=== PATIENT | male | born 1960 | race Caucasian/White ===

== ENCOUNTER 2016-06-25 21:21 | Emergency (ER) | payer MEDICAID, OTHER ==
[~2016-06-25] VITALS: Ht 180.3 cm; Wt 82.0 kg
[~2016-06-25 21:21] MED LIST: ASPI325T PO; CLON-481 PO; LISI20 PO; NITR.4 SL; OMEP20CA5 PO; TEMA15 PO; Z.0.WALKERFRONT
[2016-06-25 21:25] VITALS: BP 119/55; PULSE 86; RESP 18; TEMP 97.3; O2SAT 97
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
[2016-06-25] MEDS ORDERED: CEPH-460 PO (22:20)
[2016-06-25] MEDS ORDERED: CEPHALEXIN MONOHYDRATE 500 MG CAP PO ONE (22:30)
[2016-06-25] MEDS ORDERED: LIDOCAINE 1%/EPINEPHrine 1:100,000 SOLN 50 ML VIAL INFIL ONE (22:30)
[2016-06-25] MEDS ORDERED: TETANUS/DIPHTHERIA TOXOID ADULT 0.5 ML VIAL IM ONE (22:30)
== END 2016-06-25 23:39 | disposition home or self-care (01) ==
LOC: NEPB 21:21
DX: S51.812A Laceration without foreign body of left forearm, initial encounter (principal); S51.811A Laceration without foreign body of right forearm, initial encounter; I10 Essential (primary) hypertension; F17.200 Nicotine dependence, unspecified, uncomplicated; Z23 Encounter for immunization; Z86.79 Personal history of other diseases of the circulatory system; Z87.19 Personal history of other diseases of the digestive system; Z86.19 Personal history of other infectious and parasitic diseases; Z86.59 Personal history of other mental and behavioral disorders; W25.XXXA Contact with sharp glass, initial encounter
CPT/HCPCS: 12004; 12032; 90471; 90714

== ENCOUNTER 2016-07-07 17:25 | Emergency (ER) | payer MEDICAID ==
[~2016-07-07] VITALS: Ht 180.3 cm; Wt 82.0 kg
[~2016-07-07 17:25] MED LIST changes: +CEPH-460 PO
[2016-07-07 17:28] VITALS: BP 190/91; PULSE 96; RESP 16; TEMP 98; O2SAT 94
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
== END 2016-07-07 18:09 | disposition home or self-care (01) ==
LOC: NEPB 17:25
DX: S51.812D Laceration without foreign body of left forearm, subsequent encounter (principal); F17.210 Nicotine dependence, cigarettes, uncomplicated; F31.9 Bipolar disorder, unspecified; F32.9 Major depressive disorder, single episode, unspecified; I25.10 Atherosclerotic heart disease of native coronary artery without angina pectoris; K75.9 Inflammatory liver disease, unspecified; Z48.02 Encounter for removal of sutures; W25.XXXA Contact with sharp glass, initial encounter
CPT/HCPCS: 99281

== ENCOUNTER 2017-02-03 19:19 | Inpatient (IN) | payer MEDICAID, OTHER ==
[2017-02-03] MEDS ORDERED: SODIUM CHLORIDE 0.9% FLUSH 10 ML FLUSH IVF PRN (20:15)
--- NOTE | 2017-02-03 20:26 | PD ---
HPI Chief Complaint: Respiratory Symptoms Time Seen by Provider: 20:08 Travel History International Travel<30 days: No Contact w/Intl Traveler<30days: No History of Present Illness HPI Patient is a 56-year-old male with history of hepatitis C, liver failure, coronary artery disease with 3 cardiac stents, htn, PAD, hx of alcohol abuse presents to ER with complaints of shortness of breath. Patient reports that he has been short of breath for the past 3 days, reports that shortness of breath is exacerbated by laying down. Patient reports that he sits up, he feels much better, reports that he has not been able to sleep for 3 days because of this. Also reports that he has been having intermittent chest pains. Patient reports that he has chest pains only when he lies down, reports a "pain to his chest" relieved when he sits up. Patient describes his chest pain as palpitations. Patient reports that for the past 3 days, he has had a productive cough, he does cough up thick brown mucus. Patient is a smoker. Patient is not sure if he is having any fevers at this time, reports that he is having chills. No abdominal pain, no nausea or vomiting. No other complaints. PFSH Past Medical History Blood Disorders: No Bipolar Disorder: Yes Depression: Yes Cancer: No Cardiac Catheterization: Yes Cardiovascular Problems: Yes (CARDIAC STENTS X 3) High Cholesterol: No Chest Pain: Yes Coronary Artery Disease: Yes Diabetes: No Diminished Hearing: No Endocrine: No Gastrointestinal Disorders: No GERD: Yes Genitourinary: No Hepatitis: Yes (C) Hypertension: Yes Immune Disorder: No Implanted Vascular Access Dvce: Yes Musculoskeletal: No Neurologic: No Psychiatric: Yes Reproductive: No Respiratory: No Immunizations Current: No Myocardial Infarction: Yes (2006) Seizures: No Past Surgical History Abdominal Surgery: Yes AICD: No Appendectomy: Yes Arteriovenous Shunt: No Body Medical Devices: STENTS IN HEART Coronary Stent: Yes (3) Insulin Pump: No Joint Replacement: No Neurologic Surgery: No Pacemaker: No Other Surgery: Yes (APPENDECTOMY, AMPUTATED RIGHT FIFTH TOE) Social History Alcohol Use: No (DENIES) Tobacco Use: Yes (1/2 PACK PER DAY) Substance Use: No Allergies-Medications (Allergen,Severity, Reaction): Coded Allergies: acetaminophen (Unverified Allergy, Intermediate, 02/03/17) propoxyphene (Unverified Allergy, Intermediate, 02/03/17) Reported Meds & Prescriptions Reported Meds & Active Scripts Active Reported Warfarin 5 Mg Tab 5 Mg PO DAILY Flexeril (Cyclobenzaprine HCl) 10 Mg Tab 10 Mg PO TID Metoprolol Tartrate 25 Mg Tab 25 Mg PO BID Review of Systems General / Constitutional: Positive: Chills, No: Fever Eyes: No: Visual changes HENT: No: Headaches Cardiovascular: Positive: Chest Pain or Discomfort, Palpitations Respiratory: Positive: Cough, Shortness of Breath Gastrointestinal: No: Nausea, Vomiting, Diarrhea, Abdominal Pain Genitourinary: No: Urgency, Frequency, Dysuria Musculoskeletal: No: Pain Skin: No Rash Neurologic: No: Weakness Psychiatric: No: Depression Endocrine: No: Polydipsia Hematologic/Lymphatic: No: Easy Bruising Physical Exam Narrative GENERAL: mild distress SKIN: Focused skin assessment warm/dry. HEAD: Atraumatic. Normocephalic. EYES: Pupils equal and round. No scleral icterus. No injection or drainage. ENT: No nasal bleeding or discharge. Mucous membranes pink and moist. NECK: Trachea midline. No JVD. CARDIOVASCULAR: Regular rate and rhythm. No murmur appreciated. RESPIRATORY: No accessory muscle use. Clear to auscultation. Breath sounds equal bilaterally. GASTROINTESTINAL: Abdomen soft, non-tender, nondistended. Hepatic and splenic margins not palpable. MUSCULOSKELETAL: No obvious deformities. No clubbing. No cyanosis. +2 pedal edema bl. NEUROLOGICAL: Awake and alert. No obvious cranial nerve deficits. Motor grossly within normal limits. Normal speech. PSYCHIATRIC: Appropriate mood and affect; insight and judgment normal. Data Data Last Documented VS Vital Signs Date Time Temp Pulse Resp B/P (MAP) Pulse Ox O2 Delivery O2 Flow Rate FiO2 02/03/17 23:06 98 Nasal Cannula 2.00 02/03/17 20:41 20 02/03/17 20:40 98.2 91 148/89 (108) Orders Orders Complete Blood Count With Diff (02/03/17 20:14) Comprehensive Metabolic Panel (02/03/17 20:14) B-Type Natriuretic Peptide (02/03/17 20:14) Act Partial Throm Time (Ptt) (02/03/17 20:14) Prothrombin Time / Inr (Pt) (02/03/17 20:14) Magnesium (Mg) (02/03/17 20:14) Ckmb (Isoenzyme) Profile (02/03/17 20:14) Troponin I (02/03/17 20:14) Urinalysis - C+S If Indicated (02/03/17 20:14) Iv Access Insert/Monitor (02/03/17 20:14) Electrocardiogram (02/03/17 20:14) Ecg Monitoring (02/03/17 20:14) Oximetry (02/03/17 20:14) Chest, Single Ap (02/03/17 20:14) Sodium Chloride 0.9% Flush (Ns Flush) (02/03/17 20:15) Ammonia (02/03/17 20:15) CKMB (02/03/17 20:35) CKMB% (02/03/17 20:35) Blood Culture (02/03/17 22:41) Ceftriaxone Inj (Rocephin Inj) (02/03/17 22:45) Azithromycin Inj (Zithromax Inj) (02/03/17 22:45) Aspirin (Aspirin) (02/03/17 22:45) Potassium, Serum (K) (02/04/17 01:51) Sodium Polysty Sulfate Liq (Kayexalate L (02/03/17 23:00) Furosemide Inj (Lasix Inj) (02/03/17 23:15) Sodium Chloride 0.9% Flush (Ns Flush) (02/03/17 23:00) Sodium Chloride 0.9% Flush (Ns Flush) (02/04/17 09:00) Ceftriaxone Inj (Rocephin Inj) (02/04/17 07:00) Azithromycin (Zithromax) (02/04/17 09:00) Albuterol-Ipratropium Neb (Duoneb Neb) (02/03/17 23:00) Guaifen-Dm 200-20 Mg/10 Ml Liq (Robituss (02/03/17 23:00) Admit To Inpatient (02/03/17 ) Vital Signs (Adult) Q4H (02/03/17 22:58) Activity Oob With Assistance PRN (02/03/17 22:58) Notify Parameters (02/03/17 22:58) Intake + Output Q8H (02/03/17 22:58) ^ Smoking Cessation Counseling (02/03/17 22:58) Diet Heart Healthy (02/04/17 Breakfast) Complete Blood Count With Diff (02/04/17 06:00) Basic Metabolic Panel (Bmp) (02/04/17 06:00) Sputum Culture And Gram Stain (02/03/17 22:58) Legionella Urinary Antigen (02/03/17 22:58) Pneumococcal Urinary Antigen (02/03/17 22:58) Influenzae A/B Antigen (02/03/17 22:58) Resp Oxygen [place] C Titrat 1-4 L (02/03/17 ) Resp Incentive Spirometry (02/03/17 ) Consult Pt Eval & Tx Oob (02/03/17 22:58) Scd Bilateral/Knee High JOSE MARIA.BID (02/03/17 22:58) Inpatient Certification (02/03/17 ) Creatine Kinase (Cpk) (02/04/17 02:30) Creatine Kinase (Cpk) (02/04/17 08:30) Troponin I (02/04/17 02:30) Troponin I (02/04/17 08:30) Aspirin (Aspirin) (02/05/17 09:00) Nitroglycerin Sl (Nitrostat Sl) (02/03/17 23:15) Acetaminophen (Tylenol) (02/03/17 23:15) Ondansetron Inj (Zofran Inj) (02/03/17 23:15) Docusate Sodium (Colace) (02/03/17 23:15) Calcium Carbonate Chew (Tums Chew) (02/03/17 23:15) General Merchandise Manager / Telemetry JOSE MARIA.Q8H (02/03/17 23:08) ^ Other Nursing Orders (02/03/17 23:08) Admit Order (Ed Use Only) (02/03/17 23:11) Labs Laboratory Tests Test 02/03/17 20:35 White Blood Count 11.0 TH/MM3 Red Blood Count 5.02 MIL/MM3 Hemoglobin 13.0 GM/DL Hematocrit 39.5 % Mean Corpuscular Volume 78.7 FL Mean Corpuscular Hemoglobin 25.9 PG Mean Corpuscular Hemoglobin Concent 33.0 % Red Cell Distribution Width 15.6 % Platelet Count 302 TH/MM3 Mean Platelet Volume 8.6 FL Neutrophils (%) (Auto) 65.1 % Lymphocytes (%) (Auto) 19.5 % Monocytes (%) (Auto) 12.9 % Eosinophils (%) (Auto) 1.5 % Basophils (%) (Auto) 1.0 % Neutrophils # (Auto) 7.2 TH/MM3 Lymphocytes # (Auto) 2.1 TH/MM3 Monocytes # (Auto) 1.4 TH/MM3 Eosinophils # (Auto) 0.2 TH/MM3 Basophils # (Auto) 0.1 TH/MM3 CBC Comment DIFF FINAL Differential Comment Prothrombin Time 13.7 SEC Prothromb Time International Ratio 1.2 RATIO Activated Partial Thromboplast Time 26.9 SEC Blood Urea Nitrogen 29 MG/DL Creatinine 2.17 MG/DL Random Glucose 99 MG/DL Total Protein 8.6 GM/DL Albumin 3.1 GM/DL Calcium Level 8.2 MG/DL Magnesium Level 2.0 MG/DL Alkaline Phosphatase 116 U/L Aspartate Amino Transf (AST/SGOT) 168 U/L Alanine Aminotransferase (ALT/SGPT) 146 U/L Total Bilirubin 2.4 MG/DL Sodium Level 132 MEQ/L Potassium Level 5.8 MEQ/L Chloride Level 99 MEQ/L Carbon Dioxide Level 24.8 MEQ/L Anion Gap 8 MEQ/L Estimat Glomerular Filtration Rate 32 ML/MIN Ammonia 63 MCMOL/L Total Creatine Kinase 162 U/L Creatine Kinase MB 2.2 NG/ML Troponin I 0.43 NG/ML B-Type Natriuretic Peptide 1275 PG/ML MDM Medical Decision Making Medical Screen Exam Complete: Yes Emergency Medical Condition: Yes Interpretation(s) EKG at 2020: NSR at 92bpm, qt/qtc: 389/438, no acute st or t wave changes, non acute ekg Differential Diagnosis Differential includes pneumonia, viral syndrome, ACS, arrhythmia, CHF, electrolyte abnormality Narrative Course Patient is a 56-year-old male who presents to emergency room with multiple medical complaints. Reports that for the past 3 days, he has had cough, congestion, possible fever and chills. Reports that he has not been able to lay down or sleep for the past 3 days. VSS in the ER. EKG ordered. patient was placed on a front desk monitor upon arrival to ER. Lab work including xray of chest ordered. Vital Signs Date Time Temp Pulse Resp B/P (MAP) Pulse Ox O2 Delivery O2 Flow Rate FiO2 02/03/17 20:41 20 100 Nasal Cannula 2.00 02/03/17 20:41 20 100 Nasal Cannula 2.00 02/03/17 20:40 98.2 91 18 148/89 (108) 98 Laboratory Tests Test 02/03/17 20:35 White Blood Count 11.0 TH/MM3 (4.0-11.0) Red Blood Count 5.02 MIL/MM3 (4.50-5.90) Hemoglobin 13.0 GM/DL (13.0-17.0) Hematocrit 39.5 % (39.0-51.0) Mean Corpuscular Volume 78.7 FL (80.0-100.0) Mean Corpuscular Hemoglobin 25.9 PG (27.0-34.0) Mean Corpuscular Hemoglobin Concent 33.0 % (32.0-36.0) Red Cell Distribution Width 15.6 % (11.6-17.2) Platelet Count 302 TH/MM3 (150-450) Mean Platelet Volume 8.6 FL (7.0-11.0) Neutrophils (%) (Auto) 65.1 % (16.0-70.0) Lymphocytes (%) (Auto) 19.5 % (9.0-44.0) Monocytes (%) (Auto) 12.9 % (0.0-8.0) Eosinophils (%) (Auto) 1.5 % (0.0-4.0) Basophils (%) (Auto) 1.0 % (0.0-2.0) Neutrophils # (Auto) 7.2 TH/MM3 (1.8-7.7) Lymphocytes # (Auto) 2.1 TH/MM3 (1.0-4.8) Monocytes # (Auto) 1.4 TH/MM3 (0-0.9) Eosinophils # (Auto) 0.2 TH/MM3 (0-0.4) Basophils # (Auto) 0.1 TH/MM3 (0-0.2) CBC Comment DIFF FINAL Differential Comment Prothrombin Time 13.7 SEC (9.8-11.6) Prothromb Time International Ratio 1.2 RATIO Activated Partial Thromboplast Time 26.9 SEC (24.3-30.1) Blood Urea Nitrogen 29 MG/DL (7-18) Creatinine 2.17 MG/DL (0.60-1.30) Random Glucose 99 MG/DL (74-106) Total Protein 8.6 GM/DL (6.4-8.2) Albumin 3.1 GM/DL (3.4-5.0) Calcium Level 8.2 MG/DL (8.5-10.1) Magnesium Level 2.0 MG/DL (1.5-2.5) Alkaline Phosphatase 116 U/L (45-117) Aspartate Amino Transf (AST/SGOT) 168 U/L (15-37) Alanine Aminotransferase (ALT/SGPT) 146 U/L (12-78) Total Bilirubin 2.4 MG/DL (0.2-1.0) Sodium Level 132 MEQ/L (136-145) Potassium Level 5.8 MEQ/L (3.5-5.1) Chloride Level 99 MEQ/L (98-107) Carbon Dioxide Level 24.8 MEQ/L (21.0-32.0) Anion Gap 8 MEQ/L (5-15) Estimat Glomerular Filtration Rate 32 ML/MIN (>89) Ammonia 63 MCMOL/L (11-32) Total Creatine Kinase 162 U/L (39-308) Creatine Kinase MB 2.2 NG/ML (0.5-3.6) Troponin I 0.43 NG/ML (0.02-0.05) B-Type Natriuretic Peptide 1275 PG/ML (0-100) X-ray of the chest shows right lung base airspace consolidation and pleural effusion, patient has been pancultured, will treat with Rocephin as well as azithromycin. Creatinine 2.17 which is elevated, troponin is 0.43, BNP 1275, LFT's are elevated as well, potassium 5.8 I reviewed all labs and studies with patient in detail. Patient will be admitted to the hospital. He does not have chest pain at this time. ASA given as he does have positive troponin Case reviewed with Dr. Bell who accepts pt to service Critical Care Narrative Aggregate critical care time was 30 minutes. Time to perform other separately billable procedures was not included in the critical care time. My time did not include minutes spent treating any other patients simultaneously or on activities that did not directly contribute to the patient's treatment. The services I provided to this patient were to treat and/or prevent clinically significant deterioration that could result in: , decompensation, deterioration I provided critical care services requiring my management, as noted below: Chart data review, documentation time, medication orders and management, vital sign assessments/reviewing monitor data, ordering and reviewing lab tests, ordering and interpreting/reviewing x-rays and diagnostic studies, care of the patient and discussion of the patient with the admitting physicians. Procedures Procedure Narrative Patient was placed in reverse Trendelenburg position, 20 gauge IV was placed to the right external jugular vein without difficultly Diagnosis Primary Impression: NSTEMI (non-ST elevated myocardial infarction) Additional Impressions: Pneumonia Hyperkalemia Renal insufficiency CHF (congestive heart failure) Transaminitis Admitting Information Admitting Physician Requests: Admit Anna Miguel DO Feb 03, 2017 20:26
[2017-02-03] MEDS ORDERED: WARF-23 PO (20:39)
[2017-02-03] MEDS ORDERED: METO25TA3 PO (20:39)
[2017-02-03] MEDS ORDERED: CYCL1TAB29 PO (20:39)
[2017-02-03 20:40] VITALS: BP 148/89; PULSE 91; RESP 18; TEMP 98.2; O2SAT 98
[2017-02-03 20:41] VITALS: RESP 20; O2SAT 100
--- NOTE | 2017-02-03 20:57 | RADRPT ---
EXAM DATE/TIME: 02/03/2017 20:27 [facility] COMPARISON: CHEST SINGLE AP, March 30, 2014, 22:33. INDICATIONS : Short of breath. MEDICAL HISTORY : None. SURGICAL HISTORY : None. ENCOUNTER: Initial ACUITY: 1 day PAIN SCORE: 0/10 LOCATION: Bilateral chest FINDINGS: Right lung base consolidation is present with a small pleural effusion not present previously. The re st of the examination has not significantly changed. CONCLUSION: Right lung base airspace consolidation and pleural effusion and pneumonia should be entertained. Henna Medeiros MD on February 03, 2017 at 20:55 Board Certified Radiologist. This report was verified electronically.
--- NOTE | 2017-02-03 21:35 | EKG ---
Date Performed: 02/03/2017 Time Performed: 20:20:01 PTAGE: 56 years EKG: Sinus rhythm POSSIBLE LEFT ATRIAL ENLARGEMENT BORDERLINE ECG NO PREVIOUS TRACING DOCTOR: Mychal Marrero Interpretating Date/Time 02/03/2017 21:34:03
[2017-02-03 21:51] LABS: AUTOMATED NEUTROPHIL # 7.2 TH/MM3 (1.8-7.7); BASOPHIL # 0.1 TH/MM3 (0-0.2); EOSINOPHIL # 0.2 TH/MM3 (0-0.4); EOSINOPHIL % 1.5 % (0.0-4.0); HEMATOCRIT 39.5 % (39.0-51.0); HEMO FLAGS DIFF FINAL; LYMPH % 19.5 % (9.0-44.0); LYMPHOCYTE # 2.1 TH/MM3 (1.0-4.8); MEAN CELL VOLUME 78.7 FL (80.0-100.0); MEAN CORPUSCULAR HEMOGLOBIN 25.9 PG (27.0-34.0); MONO % 12.9 % (0.0-8.0); NEUT % 65.1 % (16.0-70.0); PLATELET COUNT 302 TH/MM3 (150-450); RED BLOOD COUNT 5.02 MIL/MM3 (4.50-5.90); RED CELL DISTRIBUTION WIDTH 15.6 % (11.6-17.2)
[2017-02-03 22:01] LABS: APTT (PATIENT) 26.9 SEC (24.3-30.1); INTERNATIONAL NORMALIZED RATIO 1.2 RATIO; PROTHROMBIN TIME - PATIENT 13.7 SEC (9.8-11.6)
[2017-02-03 22:18] LABS: ALT (GPT) 146 U/L (12-78); ANION GAP 8 MEQ/L (5-15); AST (GOT) 168 U/L (15-37); BICARBONATE 24.8 MEQ/L (21.0-32.0); BLOOD UREA NITROGEN 29 MG/DL (7-18); CHLORIDE 99 MEQ/L (98-107); GLOMERULAR FILTRATION RATE 32 ML/MIN (>89); SODIUM (NA) 132 MEQ/L (136-145)
[2017-02-03 22:19] LABS: POTASSIUM 5.8 MEQ/L (3.5-5.1)
[2017-02-03 22:24] LABS: ALKALINE PHOSPHATASE 116 U/L (45-117); CREATINE KINASE 162 U/L (39-308); TOTAL BILIRUBIN ADULT 2.4 MG/DL (0.2-1.0)
[2017-02-03 22:37] LABS: CKMB 2.2 NG/ML (0.5-3.6)
[2017-02-03] MEDS ORDERED: AZITHROMYCIN INJ 500 MG in SODIUM CHLOR 0.9% 250 ML INJ 250 ML IV ONE (22:45)
[2017-02-03] MEDS ORDERED: cefTRIAXone INJ 1,000 MG in SODIUM CHLORIDE 0.9% INJ 100 ML IV ONE (22:45)
[2017-02-03] MEDS ORDERED: ASPIRIN 325 MG TAB PO ONE (22:45)
[2017-02-03] MEDS ORDERED: RESP: ALBUTEROL 2.5 MG/IPRATROPIUM 0.5 MG NEB (PRN) INH (23:00)
[2017-02-03] MEDS ORDERED: guaiFENesin/DEXTROMETHORPHAN 200 MG/20 MG/10 ML CUP PO PRN (23:00)
[2017-02-03] MEDS ORDERED: SODIUM POLYSTYRENE SULFONATE SUSP 15 GM/60 ML CUP PO ONE (23:00)
[2017-02-03] MEDS ORDERED: SODIUM CHLORIDE 0.9% FLUSH 10 ML FLUSH IV FLUSH PRN (23:00)
[2017-02-03 23:06] VITALS: O2SAT 98
[2017-02-03] MEDS ORDERED: ONDANSETRON HCL 4 MG/2 ML VIAL IV PRN (23:15)
[2017-02-03] MEDS ORDERED: CALCIUM CARBONATE 500 MG CHEWABLE TAB CHEW PRN (23:15)
[2017-02-03] MEDS ORDERED: DOCUSATE SODIUM 100 MG CAP PO PRN (23:15)
[2017-02-03] MEDS ORDERED: FUROSEMIDE 100 MG/10 ML VIAL IV PUSH ONE (23:15)
[2017-02-03] MEDS ORDERED: ACETAMINOPHEN 325 MG TAB PO PRN (23:15)
[2017-02-03 23:22] VITALS: BP 140/90; PULSE 93; RESP 18; O2SAT 98
--- NOTE | 2017-02-03 23:49 | HHI.HP ---
HPI Service [facility] Primary Care Physician Unknown Admission Diagnosis NSTEMI, pneumonia, CHF exacerbation, hyperkalemia Diagnoses: Chief Complaint: shortness of breath Travel History International Travel<30 Days: No Contact w/Intl Traveler <30 Da: No Traveled to Known Affected Are: No History of Present Illness Written by ALONSO Sow acting as scribe for [Shelbio] on 02/03/17 at 23 :40. 56 y/o male with a history of HTN, liver failure, Hep C, CAD with stent placement, and PAD presents to the ED with complaints of shortness of breath. He states for the past 3 days he has had increasing shortness of breath worse with laying down and intermittent pressure like retrosternal pain when laying down that lasts a few minutes. He also complains of bilateral lower extremity swelling, weight gain, productive cough with brown sputum, he states he feels warm but did not check his temperature, with associated nausea and vomiting. He has chronic back pain that radiates to his abdomen. He is a poor historian when it comes to medical history, he states he was told he has liver failure but does not know why and he is unsure if he really has hep C. Per the he is being worked up for vagal nerve irritation that may be contributing to his stomach and back pain. Recently had imaging studies including evaluation of the gallbladder at [facility] results not known to the patient and . 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 digit amputation Reported Medications Reported Meds & Active Scripts Active Reported Warfarin 5 Mg Tab 5 Mg PO DAILY Flexeril (Cyclobenzaprine HCl) 10 Mg Tab 10 Mg PO TID Metoprolol Tartrate 25 Mg Tab 25 Mg PO BID Allergies: Coded Allergies: acetaminophen (Unverified Allergy, Intermediate, 02/03/17) propoxyphene (Unverified Allergy, Intermediate, 02/03/17) Active Ordered Medications Current Medications Medications (Trade) Dose Ordered Sig/Cory Route Start Time Stop Time Status Last Admin (NS Flush) 2 ml UNSCH PRN IVF 02/03/17 20:15 Azithromycin 500 mg/Sodium Chloride 250 ml @ 250 mls/hr ONCE ONCE IV 02/03/17 22:45 02/03/17 23:44 (NS Flush) 2 ml UNSCH PRN IV FLUSH 02/03/17 23:00 (NS Flush) 2 ml BID IV FLUSH 02/04/17 09:00 Ceftriaxone Sodium 1000 mg/ Sodium Chloride 100 ml @ 200 mls/hr Q24H IV 02/04/17 07:00 (Zithromax) 500 mg DAILY PO 02/04/17 09:00 (Duoneb Neb) 1 ampule Q4HR NEB PRN INH 02/03/17 23:00 (Robitussin Dm 200-20 Mg/10 ml Liq) 10 ml Q4H PRN PO 02/03/17 23:00 (Aspirin) 325 mg DAILY PO 02/05/17 09:00 (Nitrostat Sl) 0.4 mg Q5M PRN SL 02/03/17 23:15 (Tylenol) 650 mg Q4H PRN PO 02/03/17 23:15 UNV (Zofran Inj) 4 mg Q6H PRN IV 02/03/17 23:15 (Colace) 100 mg BID PRN PO 02/03/17 23:15 (Tums Chew) 1,000 mg TID PRN CHEW 02/03/17 23:15 Family History Family history significant for diabetes Social History Tobacco use: 8 cigarettes every 2 days Alcohol use: Denies Illicit drug use: Denies Physical Exam Vital Signs Vital Signs Date Time Temp Pulse Resp B/P (MAP) Pulse Ox O2 Delivery O2 Flow Rate FiO2 02/03/17 23:22 93 18 140/90 (107) 98 Room Air 02/03/17 23:06 98 Nasal Cannula 2.00 02/03/17 20:41 20 100 Nasal Cannula 2.00 02/03/17 20:41 20 100 Nasal Cannula 2.00 02/03/17 20:40 98.2 91 18 148/89 (108) 98 Physical Exam GENERAL: This is a well-nourished, well-developed patient, who appears in distress due to shortness of breath and pain. SKIN: No rashes, ecchymoses or lesions. Cool and dry. HEAD: Atraumatic. Normocephalic. No temporal or scalp tenderness. EYES: Pupils equal round and reactive. ENT: Nose without bleeding, purulent drainage or septal hematoma. Airway patent. NECK: Trachea midline. Questionable JVD, IV in place. Supple, nontender, no meningeal signs. CARDIOVASCULAR: Regular rate and rhythm without murmurs, gallops, or rubs. RESPIRATORY: Right lung diminished with crackles. No wheezes, rales, or rhonchi. GASTROINTESTINAL: Abdomen soft, non-tender, nondistended. . No guarding. MUSCULOSKELETAL: Petros pedal edema. No calf tenderness. Negative Homans sign bilaterally. NEUROLOGICAL: Awake and alert. Motor and sensory grossly within normal limits. Normal speech. Laboratory Laboratory Tests Test 02/03/17 20:35 White Blood Count 11.0 Red Blood Count 5.02 Hemoglobin 13.0 Hematocrit 39.5 Mean Corpuscular Volume 78.7 Mean Corpuscular Hemoglobin 25.9 Mean Corpuscular Hemoglobin Concent 33.0 Red Cell Distribution Width 15.6 Platelet Count 302 Mean Platelet Volume 8.6 Neutrophils (%) (Auto) 65.1 Lymphocytes (%) (Auto) 19.5 Monocytes (%) (Auto) 12.9 Eosinophils (%) (Auto) 1.5 Basophils (%) (Auto) 1.0 Neutrophils # (Auto) 7.2 Lymphocytes # (Auto) 2.1 Monocytes # (Auto) 1.4 Eosinophils # (Auto) 0.2 Basophils # (Auto) 0.1 CBC Comment DIFF FINAL Differential Comment Prothrombin Time 13.7 Prothromb Time International Ratio 1.2 Activated Partial Thromboplast Time 26.9 Blood Urea Nitrogen 29 Creatinine 2.17 Random Glucose 99 Total Protein 8.6 Albumin 3.1 Calcium Level 8.2 Magnesium Level 2.0 Alkaline Phosphatase 116 Aspartate Amino Transf (AST/SGOT) 168 Alanine Aminotransferase (ALT/SGPT) 146 Total Bilirubin 2.4 Sodium Level 132 Potassium Level 5.8 Chloride Level 99 Carbon Dioxide Level 24.8 Anion Gap 8 Estimat Glomerular Filtration Rate 32 Ammonia 63 Total Creatine Kinase 162 Creatine Kinase MB 2.2 Troponin I 0.43 B-Type Natriuretic Peptide 1275 Result Diagram: 02/03/17203402/03/172034 Imaging EKG tracing interpreted by me with sinus rhythm Chest x-ray image interpreted by me shows mild right lung base atelectasis and or infiltrate. Caprini VTE Risk Assessment Caprini VTE Risk Assessment: Mod/High Risk (score >= 2) VTE Pharm Contraindication: possible cath tomorrow Caprini Risk Assessment Model Point Value = 1 Point Value = 2 Point Value = 3 Point Value = 5 Age 41-60 Minor surgery BMI > 25 kg/m2 Swollen legs Varicose veins or History of unexplained or recurrent spontaneous Oral contraceptives or hormone replacement Sepsis (< 1 month) Serious lung disease, including pneumonia (< 1 month) Abnormal pulmonary function Acute myocardial infarction Congestive heart failure (< 1 month) History of inflammatory bowel disease Medical patient at bed rest Age 61-74 Arthroscopic surgery Major open surgery (> 45 min) Laparoscopic surgery (> 45 min) Malignancy Confined to bed (> 72 hours) Immobilizing plaster cast Central venous access Age >= 75 History of VTE Family history of VTE Factor V Leiden Prothrombin [id number] Lupus anticoagulant Anticardiolipin antibodies Elevated serum homocysteine Heparin-induced thrombocytopenia Other congenital or acquired thrombophilia Stroke (< 1 month) Elective arthroplasty Hip, pelvis, or leg fracture Acute spinal cord injury (< 1 month) Prophylaxis Regimen Total Risk Factor Score Risk Level Prophylaxis Regimen 0-1 Low Early ambulation 2 Moderate Order ONE of the following: *Sequential Compression Device (SCD) *Heparin 5000 units SQ BID 3-4 Higher Order ONE of the following medications: *Heparin 5000 units SQ TID *Enoxaparin/Lovenox 40 mg SQ daily (WT < 150 kg, CrCl > 30 mL/min) *Enoxaparin/Lovenox 30 mg SQ daily (WT < 150 kg, CrCl > 10-29 mL/min) *Enoxaparin/Lovenox 30 mg SQ BID (WT < 150 kg, CrCl > 30 mL/min) AND/OR *Sequential Compression Device (SCD) 5 or more Highest Order ONE of the following medications: *Heparin 5000 units SQ TID (Preferred with Epidurals) *Enoxaparin/Lovenox 40 mg SQ daily (WT < 150 kg, CrCl > 30 mL/min) *Enoxaparin/Lovenox 30 mg SQ daily (WT < 150 kg, CrCl > 10-29 mL/min) *Enoxaparin/Lovenox 30 mg SQ BID (WT < 150 kg, CrCl > 30 mL/min) AND *Sequential Compression Device (SCD) Assessment and Plan Problem List: (1) Acute kidney injury ICD Code: N17.9 - Acute kidney failure, unspecified Status: Acute (2) NSTEMI (non-ST elevated myocardial infarction) ICD Code: I21.4 - Non-ST elevation (NSTEMI) myocardial infarction Status: Acute (3) Transaminitis ICD Code: R74.0 - Nonspecific elevation of levels of transaminase and lactic acid dehydrogenase [LDH] Status: Acute (4) Hepatitis C ICD Code: B19.20 - Hepatitis C Status: Chronic (5) CHF (congestive heart failure) ICD Code: I50.9 - Heart failure, unspecified Status: Acute Assessment and Plan 56 y/o male with a history of HTN, liver failure, Hep C, CAD with stent placement, and PAD presents to the ED with complaints of shortness of breath. CHF exacerbation, new onset, patient denies any history of heart failure BNP 1275 -Lasix 80mg IV given in ED. Pulse doses of lasix in light of LORENZO -2D echo ordered -Consult cardiology Community acquired pneumonia Chest x ray reviewed and shows mild right lung base atelectasis and /or infiltrate -IV antibiotics: Rocephin and azithromycin -Robitussin for cough -DuoNeb scheduled -Screen for influenza, obtain sputum culture, Legionella and pneumococcal urinary antigen and follow-up blood culture Transaminitis, AST 168, ALT 148, likely due to chronic liver failure and Hep C, ammonia 63 as well as passive congestion from heart failure and infection -Cont to trend LFTs -Rifaximin started PO BID Acute Kidney Injury, creatine 2.1, baseline .5 in 2013 . This is multifactorial. Obtain urinalysis -Consult nephrology -BMP in AM -Hold fluids for now due to CHF Hyperkalemia, suspected due to LORENZO -Kayexalate x 1 given -BMP in am NSTEMI, troponin .43, patient with intermittent chest pain pressure, worse with laying down EKG shows SR with no ST elevation -Await cardiology input -ASA daily -Nitro SL PRN -Serial troponin and EKGs -Metoprolol BID Abdominal pain, non specific, suspected due to liver failure, patient is unsure why he has liver failure or if he has hep c. -Lipase ordered -Pain management with IV morphine and Po Roxicodone -Obtain recent imaging studies performed at [facility] DVT prophylaxis: SCDs, hold chemical prophylaxis for possible cardiac cath. Patient on Coumadin for reasons not known to the patient and . Denies history of A. fib, CVA, DVT and PE. Code Status Full Discussed Condition With Patient and patient's This note was transcribed by ALONSO De Santiago. I, Dr. Maciej Bell personally performed the history, physical exam, and medical decision making; and confirmed the accuracy of the information in the transcribed note. Authenticated by Dr. Maciej Bell on 02/04/17 at 01:13. Physician Certification 2 Midnight Certification Type: Admission for Inpatient Services Order for Inpatient Services The services are ordered in accordance with Medicare regulations or non- Medicare payer requirements, as applicable. In the case of services not specified as inpatient-only, they are appropriately provided as inpatient services in accordance with the 2-midnight benchmark. Estimated LOS (days): 2 days is the estimated time the patient will need to remain in the hospital, assuming treatment plan goals are met and no additional complications. Post-Hospital Plan: Home Flakita Almonte Feb 03, 2017 23:49 Maciej Bell MD Feb 04, 2017 01:06
[2017-02-04] VITALS (11 sets, daily range): BP systolic 139–159; BP diastolic 71–93; PULSE 86–101; RESP 18–20; TEMP 97.7–97.9; O2SAT 92–99
[2017-02-04] MEDS ORDERED: NALOXONE HCL 0.4 MG/ML AMP IV PRN
[2017-02-04] MEDS ORDERED: LORazepam 2 MG/ML VIAL IV PUSH ONE
[2017-02-04 02:09] LABS: POTASSIUM 3.6 MEQ/L (3.5-5.1)
[2017-02-04] MEDS ORDERED: MORPHINE SULFATE 4 MG/ML INJ IV PUSH ONE (02:15)
[2017-02-04 04:32] LABS: AUTOMATED NEUTROPHIL # 9.2 TH/MM3 (1.8-7.7); BASOPHIL # 0.1 TH/MM3 (0-0.2); BASOPHIL % 0.7 % (0.0-2.0); EOSINOPHIL # 0.1 TH/MM3 (0-0.4); EOSINOPHIL % 0.8 % (0.0-4.0); HEMATOCRIT 36.8 % (39.0-51.0); HEMO FLAGS DIFF FINAL; LYMPH % 9.4 % (9.0-44.0); LYMPHOCYTE # 1.1 TH/MM3 (1.0-4.8); MEAN CELL VOLUME 77.5 FL (80.0-100.0); MEAN CORPUSCULAR HEMOGLOBIN 26.1 PG (27.0-34.0); MEAN CORPUSCULAR HGB CONC 33.6 % (32.0-36.0); MONO % 8.3 % (0.0-8.0); NEUT % 80.8 % (16.0-70.0); PLATELET COUNT 288 TH/MM3 (150-450); RED BLOOD COUNT 4.75 MIL/MM3 (4.50-5.90); RED CELL DISTRIBUTION WIDTH 15.5 % (11.6-17.2); WHITE BLOOD COUNT 11.4 TH/MM3 (4.0-11.0)
[2017-02-04 05:21] LABS: BICARBONATE 25.9 MEQ/L (21.0-32.0); POTASSIUM 3.6 MEQ/L (3.5-5.1)
[2017-02-04] MEDS: MORPHINE SULFATE 4 MG/ML INJ IV PRN ×2 (06:45→21:56)
[2017-02-04] MEDS: cefTRIAXone INJ 1,000 MG in SODIUM CHLORIDE 0.9% INJ 100 ML IV SCH (06:45)
[2017-02-04] MEDS: AZITHROMYCIN 250 MG TAB PO SCH (09:11)
[2017-02-04] MEDS: METOPROLOL TARTRATE 25 MG TAB PO SCH ×2 (09:11→21:56)
--- NOTE | 2017-02-04 09:25 | PD.CONS ---
HPI Consult Requested By Primary Care Physician Unknown History of Present Illness 56 y/o male poor historian with pmhx significant for HTN, liver failure, Hep C, CAD with stent placement, and PAD admitted with complaints of shortness of breath. Per chart for the past 3 days he has had increasing shortness of breath worse with laying down and intermittent chest pain when laying down that lasts a few minutes. He also complains of bilateral lower extremity swelling. Cardiology consulted for elevated troponin and BNP. Review of Systems ROS Limitations: Poor Historian Consitutional: DENIES: Fatigue, Fever, Chills, Weight gain, Weight loss Eyes: DENIES: Amaurosis Fugax, Change in vision HEENT: DENIES: Lightheadedness, Change in hearing Respiratory: DENIES: See HPI, Cough, Snoring, Shortness of breath, Wheezing, Sputum production Cardiovascular: DENIES: See HPI, Chest pain, Palpitations, Syncope, Tachycardia Gastrointestinal: DENIES: Nausea, Vomiting, Change in bowel habits, Reflux, Bloody stools, Melena Genitourinary: DENIES: Urinary incontinence, Difficulty voiding Integumentary: DENIES: Rash Neurologic: DENIES: Tingling or numbness, Memory problems, Poor Balance, Stroke symptoms Musculoskeletal: DENIES: Joint pain, Muscle pain, Limited range of motion, Back pain Psychiatric: DENIES: Anxiety, Depression, Sleep disturbances Hematologic: DENIES: Bruising tendencies, Bleeding tendencies Endocrine: DENIES: Weight gain, Weight loss, Thyroid disease Past Family Social History Allergies: Coded Allergies: acetaminophen (Unverified Allergy, Intermediate, 02/03/17) propoxyphene (Unverified Allergy, Intermediate, 02/03/17) Past Medical History HTN, liver failure, Hep C, CAD with stent placement, and PAD Past Surgical History Appendectomy Left foot 5th digit amputation Reported Medications Reported Meds & Active Scripts Active Reported Warfarin 5 Mg Tab 5 Mg PO DAILY Flexeril (Cyclobenzaprine HCl) 10 Mg Tab 10 Mg PO TID Metoprolol Tartrate 25 Mg Tab 25 Mg PO BID Active Ordered Medications Current Medications Medications (Trade) Dose Ordered Sig/Cory Route Start Time Stop Time Status Last Admin (NS Flush) 2 ml UNSCH PRN IVF 02/03/17 20:15 (NS Flush) 2 ml UNSCH PRN IV FLUSH 02/03/17 23:00 (NS Flush) 2 ml BID IV FLUSH 02/04/17 09:00 Ceftriaxone Sodium 1000 mg/ Sodium Chloride 100 ml @ 200 mls/hr Q24H IV 02/04/17 07:00 02/04/17 06:45 (Zithromax) 500 mg DAILY PO 02/04/17 09:00 02/04/17 09:11 (Duoneb Neb) 1 ampule Q4HR NEB PRN INH 02/03/17 23:00 (Robitussin Dm 200-20 Mg/10 ml Liq) 10 ml Q4H PRN PO 02/03/17 23:00 (Aspirin) 325 mg DAILY PO 02/05/17 09:00 (Nitrostat Sl) 0.4 mg Q5M PRN SL 02/03/17 23:15 (Zofran Inj) 4 mg Q6H PRN IV 02/03/17 23:15 (Colace) 100 mg BID PRN PO 02/03/17 23:15 (Tums Chew) 1,000 mg TID PRN CHEW 02/03/17 23:15 (Xifaxan) 550 mg BID PO 02/04/17 09:00 (Roxicodone) 10 mg Q4H PRN PO 02/04/17 00:00 (Morphine Inj) 1 mg Q3H PRN IV 02/04/17 00:00 02/04/17 06:45 (Roxicodone) 5 mg Q4H PRN PO 02/04/17 00:00 (Narcan Inj) 0.4 mg UNSCH PRN IV 02/04/17 00:00 (Lopressor) 25 mg BID PO 02/04/17 09:00 02/04/17 09:11 Physical Exam Vital Signs Vital Signs Date Time Temp Pulse Resp B/P (MAP) Pulse Ox O2 Delivery O2 Flow Rate FiO2 02/04/17 08:19 99 21 02/04/17 08:00 97.9 92 20 140/77 (98) 92 02/04/17 08:00 90 02/04/17 06:45 97.7 99 150/71 (97) 99 02/04/17 06:04 02/04/17 05:32 86 18 148/86 (106) 98 Nasal Cannula 2.00 02/03/17 23:22 93 18 140/90 (107) 98 Room Air 02/03/17 23:06 98 Nasal Cannula 2.00 02/03/17 20:41 20 100 Nasal Cannula 2.00 02/03/17 20:41 20 100 Nasal Cannula 2.00 02/03/17 20:40 98.2 91 18 148/89 (108) 98 Physical Exam GENERAL: Well-nourished, well-developed patient. SKIN: Warm and dry. HEAD: Normocephalic. EYES: No scleral icterus. No injection or drainage. NECK: Supple, trachea midline. No JVD or lymphadenopathy. CARDIOVASCULAR: Regular rate and rhythm without murmurs, gallops, or rubs. RESPIRATORY: Breath sounds equal bilaterally. No accessory muscle use. GASTROINTESTINAL: Abdomen soft, non-tender, nondistended. EXTREMITIES: No cyanosis, or +edema. NEUROLOGICAL: Awake, alert, and oriented x 3. Non-focal. Laboratory Laboratory Tests Test 02/03/17 20:35 02/04/17 01:33 02/04/17 04:20 White Blood Count 11.0 11.4 Red Blood Count 5.02 4.75 Hemoglobin 13.0 12.4 Hematocrit 39.5 36.8 Mean Corpuscular Volume 78.7 77.5 Mean Corpuscular Hemoglobin 25.9 26.1 Mean Corpuscular Hemoglobin Concent 33.0 33.6 Red Cell Distribution Width 15.6 15.5 Platelet Count 302 288 Mean Platelet Volume 8.6 7.9 Neutrophils (%) (Auto) 65.1 80.8 Lymphocytes (%) (Auto) 19.5 9.4 Monocytes (%) (Auto) 12.9 8.3 Eosinophils (%) (Auto) 1.5 0.8 Basophils (%) (Auto) 1.0 0.7 Neutrophils # (Auto) 7.2 9.2 Lymphocytes # (Auto) 2.1 1.1 Monocytes # (Auto) 1.4 0.9 Eosinophils # (Auto) 0.2 0.1 Basophils # (Auto) 0.1 0.1 CBC Comment DIFF FINAL DIFF FINAL Differential Comment Prothrombin Time 13.7 Prothromb Time International Ratio 1.2 Activated Partial Thromboplast Time 26.9 Blood Urea Nitrogen 29 28 Creatinine 2.17 1.73 Random Glucose 99 90 Total Protein 8.6 Albumin 3.1 Calcium Level 8.2 8.3 Magnesium Level 2.0 Alkaline Phosphatase 116 Aspartate Amino Transf (AST/SGOT) 168 Alanine Aminotransferase (ALT/SGPT) 146 Total Bilirubin 2.4 Sodium Level 132 137 Potassium Level 5.8 3.6 3.6 Chloride Level 99 101 Carbon Dioxide Level 24.8 25.9 Anion Gap 8 10 Estimat Glomerular Filtration Rate 32 41 Ammonia 63 Total Creatine Kinase 162 61 65 Creatine Kinase MB 2.2 Troponin I 0.43 0.41 0.40 B-Type Natriuretic Peptide 1275 Lipase 82 Date/Time Source Procedure Growth Status 02/03/17 23:45 Blood Peripheral Aerobic Blood Culture Pending Received 02/03/17 23:45 Blood Peripheral Anaerobic Blood Culture Pending Received Result Diagram: 02/04/1741902/04/17419 Assessment and Plan Problem List: (1) CHF (congestive heart failure) ICD Codes: I50.9 - Heart failure, unspecified Status: Acute Plan: 56 y/o M with SOB, PNA and acute renal failure. Symptoms concerning for new onset CHF. He remains afebrile and hemodynamically stable, chest pain free with mild bilateral leg edema and tenderness on palpation in the right upper quadrant. Echo ordered pending results. Mildly elevated troponin likely secondary to LORENZO. EKG unremarkable. No invasive cardiac workup at this time due to LORENZO. Recommendations: 1. Medical management 2. Await echo results (2) Chest pain ICD Codes: R07.9 - Chest pain Status: Acute (3) Hypertension ICD Codes: I10 - Hypertension Status: Acute (4) Tobacco abuse ICD Codes: Z72.0 - Tobacco abuse Status: Acute (5) Alcohol abuse ICD Codes: F10.10 - Alcohol abuse Status: Acute (6) Peripheral arterial disease ICD Codes: I73.9 - Peripheral arterial disease Status: Acute (7) Hepatitis C ICD Codes: B19.20 - Hepatitis C Status: Chronic (8) Acute kidney injury ICD Codes: N17.9 - Acute kidney failure, unspecified Status: Acute Problem Qualifiers (1) CHF (congestive heart failure): Chava Blas MD Feb 04, 2017 09:25
--- NOTE | 2017-02-04 11:20 | HHI.PR ---
Subjective Remarks Pt doesn't speak much, complains of pain 6-01/24 initially tells me mid chest then when RN goes in tells her right sided chest. Pt is a poor historian, falls asleep. social service technician just finished performing the ECHO. Objective Vitals Vital Signs Date Time Temp Pulse Resp B/P (MAP) Pulse Ox O2 Delivery O2 Flow Rate FiO2 02/04/17 08:19 99 21 02/04/17 08:00 97.9 92 20 140/77 (98) 92 02/04/17 08:00 90 02/04/17 06:45 97.7 99 150/71 (97) 99 02/04/17 06:04 02/04/17 05:32 86 18 148/86 (106) 98 Nasal Cannula 2.00 02/03/17 23:22 93 18 140/90 (107) 98 Room Air 02/03/17 23:06 98 Nasal Cannula 2.00 02/03/17 20:41 20 100 Nasal Cannula 2.00 02/03/17 20:41 20 100 Nasal Cannula 2.00 02/03/17 20:40 98.2 91 18 148/89 (108) 98 I/O 02/03/17 02/03/17 02/03/17 02/04/17 02/04/17 02/04/17 07:00 15:00 23:00 07:00 15:00 23:00 Output Total 1800 ml Balance -1800 ml Output Urine Total 1800 ml # Voids 3 Result Diagram: 02/04/1741902/04/17419 Objective Remarks GENERAL: appears very uncomfortable. somnolent SKIN: multiple tattoos HEAD: Atraumatic. Normocephalic. EYES: keeps eyes closed ENT: Nose without drainage. Airway patent. NECK: Trachea midline. CARDIOVASCULAR: Regular rate and rhythm without obvious murmurs RESPIRATORY: Right lung diminished with crackles. No wheezes GASTROINTESTINAL: Abdomen soft, non-tender, nondistended. . No guarding. MUSCULOSKELETAL: trace to 1+ edema noted edema in LE. No calf tenderness. Negative Homans sign bilaterally. NEUROLOGICAL: Awake and alert. Motor and sensory grossly within normal limits. Normal speech. A/P Problem List: (1) Acute kidney injury ICD Code: N17.9 - Acute kidney failure, unspecified Status: Acute (2) NSTEMI (non-ST elevated myocardial infarction) ICD Code: I21.4 - Non-ST elevation (NSTEMI) myocardial infarction Status: Acute (3) Transaminitis ICD Code: R74.0 - Nonspecific elevation of levels of transaminase and lactic acid dehydrogenase [LDH] Status: Acute (4) Hepatitis C ICD Code: B19.20 - Hepatitis C Status: Chronic (5) CHF (congestive heart failure) ICD Code: I50.9 - Heart failure, unspecified Status: Acute Assessment and Plan 56 y/o male with a history of HTN, liver failure, Hep C, CAD with stent placement, and PAD presents to the ED with complaints of shortness of breath. CHF exacerbation, new onset, patient denies any history of heart failure BNP 1275 -s/p Lasix 80mg IV given in ED. start lasix 40mg IV daily. monitor kidney function closely. -2D echo done, report pending. -Cardiology following, discussed w Dr. Rubio, no heparin gtt for now. continue aggressive medical management. No plans for cardiac cath due to LORENZO. - heart healthy diet w fluid restriction <1500ml/day Community acquired pneumonia Chest x ray reviewed and shows mild right lung base atelectasis and /or infiltrate -IV antibiotics: Rocephin and azithromycin -Robitussin for cough -DuoNeb scheduled -Screen for influenza, obtain sputum culture, Legionella and pneumococcal urinary antigen not yet available and follow-up blood culture Transaminitis, AST 168, ALT 148, likely due to chronic liver failure and Hep C, ammonia 63 as well as congestion from heart failure and infection -Cont to trend LFTs -on Rifaximin PO BID Acute Kidney Injury, creatine 2.1-->1.75, baseline .5 in 2014 . This is multifactorial. Obtain urinalysis -Consult nephrology in place. -monitor Cr levels -Hold fluids for now due to CHF Hyperkalemia, suspected due to LORENZO -s/p Kayexalate x 1 -resolved NSTEMI, troponin .43--.41--.40, patient with intermittent chest pain pressure, worse with laying down EKG shows SR with no ST elevation -aggressive medical management for now. Cards following. Appreciate input. -ASA daily -Nitro SL PRN -Metoprolol BID Abdominal pain, non specific, suspected due to liver failure, patient is unsure why he has liver failure or if he has hep c. -Lipase ordered -Pain management with IV morphine and Po Roxicodone -Obtain recent imaging studies performed at [facility] DVT prophylaxis: SCDs, hold chemical prophylaxis for possible cardiac cath. Pt' s brought in pt's meds and there was no coumadin bottle in there. No known reason why pt would be on coumadin. RN to update MED REC. no prior history of A. fib, CVA, DVT and PE per patient and . Discharge Planning d/c pending further recs and clinical improvement. Problem Qualifiers (1) CHF (congestive heart failure): Marisol Felton MD Feb 04, 2017 11:20
[2017-02-04] MEDS: RIFAXIMIN 550 MG TAB PO SCH ×2 (12:41→21:55)
[2017-02-04] MEDS: SODIUM CHLORIDE 0.9% FLUSH 10 ML FLUSH IV FLUSH SCH ×2 (12:42→21:56)
--- NOTE | 2017-02-04 15:42 | ECHRPT ---
Indication: HEART FAILURE CONCLUSIONS The left ventricular systolic function is sobcgxyy-jc-djvcexa reduced with an estimated ejection fra ction in the range of 35-40%. Normal left ventricular size. Wall thickness is normal. The left atrial size is mildly dilated. The right atrial size is flio-de-vzkbvybxcx dilated. Moderate thickening of the mitral valve leaflets. Mild mitral valve regurgitation. There is moderate tricuspid regurgitation. The estimated pulmonary arterial pressure is 54 mmHg. The inferior vena cava is dilated. BP: 148 / 86 HR: 86 Rhythm: Sinus MEASUREMENTS (Male / Female) Normal Values Technical Quality:Good 2D ECHO LV Diastolic Diameter PLAX 5.5 cm 4.2 - 5.9 / 3.9 - 5.3 cm LV Systolic Diameter PLAX 4.5 cm IVS Diastolic Thickness 1.1 cm 0.6 - 1.0 / 0.6 - 0.9 cm LVPW Diastolic Thickness 1.1 cm 0.6 - 1.0 / 0.6 - 0.9 cm LV Relative Wall Thickness 0.4 RV Internal Dim ED PLAX 3.4 cm LVOT Diameter 1.9 cm LA Systolic Diameter LX 4.3 cm 3.0 - 4.0 / 2.7 - 3.8 cm LV Ejection Fraction MOD 4C 35.6 % LV Cardiac Index MOD 4C 1992.1 cm/minm LV Ejection Fraction 4C AL 37.9 % LV Cardiac Index 4C AL 2203.9 cm/minm M-MODE Aortic Root Diameter MM 2.6 cm AV Cusp Separation MM 2.0 cm DOPPLER AV Peak Velocity 177.0 cm/s AV Peak Gradient 12.5 mmHg LVOT Peak Velocity 94.3 cm/s LVOT Peak Gradient 3.6 mmHg AV Area Cont Eq pk 1.5 cm MV Area PHT 5.0 cm Mitral E Point Velocity 67.6 cm/s Mitral A Point Velocity 53.8 cm/s Mitral E to A Ratio 1.3 LV E' Lateral Velocity 12.0 cm/s Mitral E to LV E' Lateral Ratio 5.6 LV E' Septal Velocity 5.3 cm/s Mitral E to LV E' Septal Ratio 12.9 TR Peak Velocity 332.0 cm/s TR Peak Gradient 44.1 mmHg PV Peak Velocity 107.0 cm/s PV Peak Gradient 4.6 mmHg FINDINGS LEFT VENTRICLE The left ventricular systolic function is slkphggb-pt-tavzthb reduced with an estimated ejection fra ction in the range of 35-40%. Normal left ventricular size. Wall thickness is normal. RIGHT VENTRICLE Normal right ventricular size and systolic function. LEFT ATRIUM The left atrial size is mildly dilated. RIGHT ATRIUM The right atrial size is aslm-ka-kswyoryajz dilated. ATRIAL SEPTUM Normal atrial septal thickness without atrial level shunting by limited color doppler interrogation. AORTA The aortic root and proximal ascending aorta are normal in size on limited imaging. MITRAL VALVE Moderate thickening of the mitral valve leaflets. Mild mitral valve regurgitation. AORTIC VALVE Trileaflet aortic valve. No aortic valve stenosis or regurgitation. TRICUSPID VALVE There is moderate tricuspid regurgitation. The estimated pulmonary arterial pressure is 54 mmHg. VESSELS The inferior vena cava is dilated. PERICARDIUM No pericardial effusion. Chava Blas MD (Electronically Signed) Final Date:04 February 2017 15:40
--- NOTE | 2017-02-04 16:32 | MB ---
cc: AUTUMN AGUIRRE MD DATE OF CONSULTATION 02/04/2017 REASON FOR CONSULTATION Elevated BUN and creatinine, for evaluation. HISTORY OF PRESENT ILLNESS This is a 56-year-old male with a past medical history of hypertension, hepatitis C with liver failure, ischemic heart disease, peripheral vascular disease. He came to the hospital with the complaint of worsening shortness of breath and chest pain. I was called to see the patient because of elevated BUN and creatinine. The patient has creatinine of 2.1 on presentation. Previously he has normal creatinine except one reading of 2013 in March and now the creatinine is 1.7. The patient has elevated troponin, was seen by Cardiology. He had an echocardiogram done. The patient denies any dysuria, hematuria, did not notice any decrease in the urine output. The patient has nausea and vomited once yesterday. He occasionally takes BC powder for pain. Denies any history of fever. PAST MEDICAL HISTORY 1. Hypertension. 1. Chronic liver disease. 2. Hepatitis C. 3. Ischemic heart disease. 4. Peripheral vascular disease. PAST SURGICAL HISTORY 1. Appendicectomy. 2. Left foot surgery with fifth digit amputation. REVIEW OF SYSTEMS The patient has generalized weakness, feeling tired. He still has shortness of breath especially on exertion. His chest pain is improved. The nausea and vomiting is improved. He started eating better and does not have any nausea or vomiting today. He has nausea and vomiting yesterday. There is no dysuria, hematuria or difficulty in passing urine. He was taking BC Powder occasionally for body pain. SOCIAL HISTORY The patient is currently a smoker; he smokes about 8 cigarettes per eay. There is a past history of alcoholism but he has not been drinking alcohol for the last 6-month. FAMILY HISTORY Positive for diabetes mellitus. ALLERGIES ACETAMINOPHEN PROPOXYPHENE. MEDICATIONS Currently he is on the following medications - 1. Rifaximin 550 mg b.i.d. 2. Lopressor 25 mg b.i.d. 3. Zithromax 5 mg once a day. 4. Aspirin and 325 mg daily. 5. Lasix 40 mg IV daily. 6. Ceftriaxone 1 gram IV q.24 hours. 7. DuoNeb nebulizer. 8. Nitrostat sublingual p.r.n. 9. Morphine p.r.n. 10. Marcaine p.r.n. PHYSICAL EXAMINATION GENERAL: The patient is awake, alert. He is not in acute distress. VITAL SIGNS: His last blood pressure was 140/77, temperature 97.9, oxygen saturation on room air is 92-99%. His blood pressure was stable throughout this presentation and he did not have any significant hypotensive episode on examination. HEENT: Pupils equally reacting to light. Nonicteric sclerae. Conjunctivae normal. NECK: Supple. JVD is not elevated. LUNGS: The patient has bilateral good air entry with occasional wheezing. HEART: S1, S2. Regular rhythm. ABDOMEN: Distended, soft lax. There is no tenderness. EXTREMITIES: He has mild edema. INVESTIGATIONS WBC count is 11.4, hemoglobin 12.4, platelet count of 288, neutrophils 80.8%. Sodium 137, potassium 3.6, chloride 101, bicarb 25.9, BUN 28, creatinine 1.7, calcium 8. Trop I is 0.4, creatinine kinase 65, INR is 1.2. Urinalysis showing that there is no proteinuria but this was done in 2011. Hepatitis C antibodies. No spasm present in 2012. His blood cultures are negative so far. Last troponin he had was 0.4. IMAGING STUDIES The patient has chest x-ray done during this presentation and it shows right lung base consolidation with pleural thickening or pleural effusion. ECHOCARDIOGRAM Done and shows the ejection fraction is 35-40%. Left ventricle has moderately to severely reduced systolic function, normal left ventricular size. Moderate tricuspid regurgitation. No pericardial effusion. ASSESSMENT AND PLAN 1. Acute kidney injury. 2. Congestive heart failure with some exacerbation. 3. Ischemic heart disease and elevated troponins. 4. History of hepatitis C and chronic liver disease. 5. Peripheral arterial disease. 6. Anemia. The patient has previously normal creatinine and now came with creatinine of 2.1. Most likely this is acute kidney injury as related to his acute worsening of cardiac function with cardiorenal syndrome, possibility of drug-related especially nonsteroidal anti-inflammatory drugs. I will get the urinalysis to see if he has any proteinuria. Also get ultrasound of the kidneys and check the urine sodium osmolality and urine for eosinophils. Agree with continued diuretic and avoid any nephrotoxins. Follow the urine output and the BUN and creatinine. Thank you for the consultation and I will follow the patient while he is in the hospital. Autumn Aguirre MD AQJ/SSB /3:48 PM /4:10 PM
--- NOTE | 2017-02-04 17:51 | RADRPT ---
EXAM DATE/TIME: 02/04/2017 17:20 [facility] COMPARISON: No previous studies available for comparison. INDICATIONS : Increased lab values. MEDICAL HISTORY : Hypertension. Gastroesophageal reflux disease. Myocardial infarction. Coronary artery disease. Re nal failure. Gangrene of toe. Arthritis. Hepatitis C. SURGICAL HISTORY : Appendectomy. Coronary stent. Cardiac catheterization. Amputated left fifth toe. ENCOUNTER: Initial ACUITY: 1 day PAIN SCORE: 8/10 LOCATION: Bilateral flank MEASUREMENTS: RIGHT KIDNEY: 12.4 x 6.0 x 5.9 cm LEFT KIDNEY: 12.0 x 5.6 x 6.7 FINDINGS: RIGHT KIDNEY: Renal cortex is normal in thickness and echotexture. No hydronephrosis, stone, or mass. LEFT KIDNEY: Renal cortex is normal in thickness and echotexture. No hydronephrosis, stone, or mass. BLADDER: Within normal limits given the degree of distension. A trace amount of ascitic fluid. CONCLUSION: 1. Trace amount of ascitic fluid. 2. Kidneys are unremarkable. Lalo Chowdhury Jr., MD on February 04, 2017 at 17:46 Board Certified Radiologist. This report was verified electronically.
[2017-02-05] MEDS ORDERED: LORazepam 0.5 MG TAB PO ONE (00:15)
[2017-02-05] MEDS: MORPHINE SULFATE 4 MG/ML INJ IV PRN ×2 (02:08→09:43)
[2017-02-05] MEDS: NITROGLYCERIN 0.4 MG SL 25 TABS/BTL SL PRN ×3 (03:41→03:51)
[2017-02-05] MEDS: cefTRIAXone INJ 1,000 MG in SODIUM CHLORIDE 0.9% INJ 100 ML IV SCH (05:11)
[2017-02-05] MEDS: NITROGLYCERIN 2% OINT 1 GM PACKET TOPICAL SCH ×3 (05:12→11:18)
[2017-02-05 05:45] LABS: AUTOMATED NEUTROPHIL # 5.9 TH/MM3 (1.8-7.7); BASOPHIL # 0.1 TH/MM3 (0-0.2); EOSINOPHIL # 0.2 TH/MM3 (0-0.4); HEMATOCRIT 36.5 % (39.0-51.0); HEMO FLAGS DIFF FINAL; LYMPH % 22.1 % (9.0-44.0); LYMPHOCYTE # 2.1 TH/MM3 (1.0-4.8); MEAN CELL VOLUME 77.6 FL (80.0-100.0); MEAN CORPUSCULAR HEMOGLOBIN 25.3 PG (27.0-34.0); MEAN CORPUSCULAR HGB CONC 32.7 % (32.0-36.0); MONO % 14.2 % (0.0-8.0); NEUT % 60.7 % (16.0-70.0); PLATELET COUNT 312 TH/MM3 (150-450); RED CELL DISTRIBUTION WIDTH 15.8 % (11.6-17.2); WHITE BLOOD COUNT 9.7 TH/MM3 (4.0-11.0)
[2017-02-05 06:13] LABS: ALKALINE PHOSPHATASE 112 U/L (45-117); ALT (GPT) 95 U/L (12-78); ANION GAP 11 MEQ/L (5-15); AST (GOT) 82 U/L (15-37); BICARBONATE 24.5 MEQ/L (21.0-32.0); BLOOD UREA NITROGEN 21 MG/DL (7-18); CHLORIDE 103 MEQ/L (98-107); CREATINE KINASE 35 U/L (39-308); GLOMERULAR FILTRATION RATE 61 ML/MIN (>89); MAGNESIUM 1.6 MG/DL (1.5-2.5); POTASSIUM 3.5 MEQ/L (3.5-5.1); SODIUM (NA) 138 MEQ/L (136-145); TOTAL BILIRUBIN ADULT 1.2 MG/DL (0.2-1.0)
[2017-02-05 07:00] VITALS: BP 129/89; PULSE 87; PULSE 91; RESP 17; TEMP 97.8; O2SAT 97
[2017-02-05 08:00] VITALS: PULSE 82
[2017-02-05 09:00] VITALS: PULSE 83
[2017-02-05] MEDS ORDERED: ASPIRIN 325 MG TAB PO SCH (09:00)
[2017-02-05] MEDS ORDERED: FUROSEMIDE 40 MG/4 ML VIAL IV PUSH SCH (09:00)
[2017-02-05] MEDS: SODIUM CHLORIDE 0.9% FLUSH 10 ML FLUSH IV FLUSH SCH (09:13)
[2017-02-05] MEDS: AZITHROMYCIN 250 MG TAB PO SCH (09:15)
[2017-02-05] MEDS: RIFAXIMIN 550 MG TAB PO SCH (09:15)
[2017-02-05] MEDS: METOPROLOL TARTRATE 25 MG TAB PO SCH (09:15)
[2017-02-05 09:41] LABS: BLOOD, URINE NEG (NEG); COMMENT (UR) CULT NOT INDICATED; CULTURE IF INDICATED CULT NOT INDICATED; GLUCOSE,URINE NEG (NEG); KETONE, URINE NEG (NEG); NITRITE,URINE NEG (NEG); PH, URINE 7.5 (5.0-8.5); URINE COLOR YELLOW (YELLW/STRAW)
--- NOTE | 2017-02-05 10:30 | HHI.PR ---
Subjective Remarks Pt states that he is feeling better. wants to go home soon. denies any pain but during exam states that he has pain if one presses on his abdomen. currently denies any CP or worsening SOB at bedside. Objective Vitals Vital Signs Date Time Temp Pulse Resp B/P (MAP) Pulse Ox O2 Delivery O2 Flow Rate FiO2 02/05/17 09:00 83 02/05/17 08:00 82 02/05/17 08:00 97 Nasal Cannula 2.00 02/05/17 07:00 97.8 87 17 129/89 (102) 97 02/05/17 07:00 91 02/04/17 23:50 97.8 88 20 139/83 (101) 98 02/04/17 23:00 101 02/04/17 20:08 96 Nasal Cannula 2.00 02/04/17 20:08 97.8 98 20 159/93 (115) 96 02/04/17 19:25 93 Nasal Cannula 2.00 02/04/17 19:00 92 02/04/17 15:00 92 02/04/17 11:00 92 I/O 02/04/17 02/04/17 02/04/17 02/05/17 02/05/17 02/05/17 07:00 15:00 23:00 07:00 15:00 23:00 Intake Total 100 ml 780 ml 480 ml Output Total 1800 ml 600 ml Balance -1800 ml 100 ml 180 ml 480 ml Intake Oral 780 ml 480 ml IV Total 100 ml Output Urine Total 1800 ml 600 ml # Voids 3 3 Result Diagram: 02/05/17 0510 02/05/17 0510 Imaging Last Impressions Chest X-Ray 02/03/172013 Signed Impressions: Service Date/Time: Friday, February 03, 2017 20:27 - CONCLUSION: Right lung base airspace consolidation and pleural effusion and pneumonia should be entertained. Henna Medeiros MD Objective Remarks GENERAL: appears very uncomfortable but is more alert today, laying on his right side SKIN: multiple tattoos EYES: keeps eyes closed ENT: Nose without drainage. Airway patent. NECK: Trachea midline. CARDIOVASCULAR: Regular rate and rhythm without obvious murmurs RESPIRATORY: Right lung diminished with crackles. No wheezes GASTROINTESTINAL: Abdomen soft, tender to deep palpation throughout, voluntary guarding. MUSCULOSKELETAL: edema seems to have resolved on the lower extremities. No calf tenderness. Negative Homans sign bilaterally. NEUROLOGICAL: Awake and alert. Motor and sensory grossly within normal limits. Normal speech. A/P Problem List: (1) Acute kidney injury ICD Code: N17.9 - Acute kidney failure, unspecified Status: Acute (2) NSTEMI (non-ST elevated myocardial infarction) ICD Code: I21.4 - Non-ST elevation (NSTEMI) myocardial infarction Status: Acute (3) Transaminitis ICD Code: R74.0 - Nonspecific elevation of levels of transaminase and lactic acid dehydrogenase [LDH] Status: Acute (4) Hepatitis C ICD Code: B19.20 - Hepatitis C Status: Chronic (5) CHF (congestive heart failure) ICD Code: I50.9 - Heart failure, unspecified Status: Acute Assessment and Plan 56 y/o male with a history of HTN, liver failure, Hep C, CAD with stent placement, and PAD presents to the ED with complaints of shortness of breath. CHF exacerbation, new onset, patient denies any history of heart failure BNP 1275 -s/p Lasix 80mg IV given in ED. on lasix 40mg IV daily, will switch to po. monitor kidney function closely. -2D echo showing EF of 35-40% -Cardiology following, discussed w Dr. Rubio, no heparin gtt for now. continue aggressive medical management. No plans for cardiac cath due to LORENZO. - heart healthy diet w fluid restriction <1500ml/day. Pt has been counseled on this w present. Community acquired pneumonia Chest x ray reviewed and shows mild right lung base atelectasis and /or infiltrate -on Rocephin and azithromycin -Robitussin for cough -DuoNeb scheduled -Screen for influenza, obtain sputum culture, Legionella and pneumococcal urinary antigen pending and follow-up blood culture which so far is neg x 1 day Transaminitis, AST 168, ALT 148, likely due to chronic liver failure and Hep C, ammonia 63 as well as congestion from heart failure and infection -LFTs slowly trending down -on Rifaximin PO BID Acute Kidney Injury, creatine 2.1-->1.75--> 1.24, baseline .5 in 2013 . This is multifactorial. Obtain urinalysis -Nephrology following. -monitor Cr levels -Hold fluids for now due to CHF Hyperkalemia, suspected due to LORENZO -s/p Kayexalate x 1 -resolved NSTEMI, troponin .43--.41--.40, patient with intermittent chest pain pressure, worse with laying down EKG shows SR with no ST elevation -aggressive medical management for now. Cards following. Appreciate input. -ASA daily -Nitro SL PRN -Metoprolol BID Abdominal pain, non specific, suspected due to liver failure, patient is unsure why he has liver failure or if he has hep c. -Lipase wnl -Pain management with IV morphine and Po Roxicodone as needed. -Obtain recent imaging studies performed at [facility] DVT prophylaxis: SCDs, heparin. Pt's brought in pt's meds and there was no coumadin bottle in there. No known reason why pt would be on coumadin. RN to update MED REC. no prior history of A. fib, CVA, DVT and PE per patient and . Discharge Planning clinically pt is improving however still very tender on exam, RN calls me to tells me that pt is requesting more pain meds. Pt is newly diagnosed w CHF. Awaiting final recs from cards. F/u cultures until final. I have transitioned him to po lasix. anticipate discharge possibly in AM if better and cleared by cards. Problem Qualifiers (1) CHF (congestive heart failure): Marisol Felton MD Feb 05, 2017 10:30
[2017-02-05 11:00] VITALS: BP 135/73; PULSE 89; PULSE 93; RESP 18; TEMP 97.3; O2SAT 98
--- NOTE | 2017-02-05 14:19 | EKG ---
Date Performed: 02/05/2017 Time Performed: 03:57:16 PTAGE: 56 years EKG: Sinus rhythm Possible anteroseptal infarct - age undetermined Lateral ST-T changes may be due to myocardial ische luisito Possible left ventricular hypertrophy Abnormal ECG Compared to PREVIOUS TRACING , there has been an increase in the lateral T-wave changes. No other sig nificant serial change. PREVIOUS TRACIN02/03/2017 20.20 DOCTOR: Jodie Billingsley Interpretating Date/Time 02/05/2017 14:19:27
[2017-02-06] MEDS ORDERED: FUROSEMIDE 40 MG TAB PO SCH (09:00)
== END 2017-02-05 11:50 | disposition left against medical advice (07) | DRG 280 ==
LOC: NEPE 19:19 → NEDH 23:13 → HCIN 02-04 06:29
PROVIDERS: ADMIT Hospitalist; ATTEND Hospitalist
DX: I21.4 Non-ST elevation (NSTEMI) myocardial infarction (principal); J18.9 Pneumonia, unspecified organism; N17.9 Acute kidney failure, unspecified; I13.0 Hypertensive heart and chronic kidney disease with heart failure and stage 1 through stage 4 chronic kidney disease, or unspecified chronic kidney disease; I50.9 Heart failure, unspecified; I73.9 Peripheral vascular disease, unspecified; K72.10 Chronic hepatic failure without coma; E87.5 Hyperkalemia; F17.210 Nicotine dependence, cigarettes, uncomplicated; Z95.5 Presence of coronary angioplasty implant and graft; I25.2 Old myocardial infarction; F31.9 Bipolar disorder, unspecified; I25.10 Atherosclerotic heart disease of native coronary artery without angina pectoris; K21.9 Gastro-esophageal reflux disease without esophagitis; B19.20 Unspecified viral hepatitis C without hepatic coma; D64.9 Anemia, unspecified; G89.29 Other chronic pain; M54.9 Dorsalgia, unspecified; N18.9 Chronic kidney disease, unspecified; F10.21 Alcohol dependence, in remission
CPT/HCPCS: 71010; 76775; 80048; 80053; 81001; 82140; 82550; 82552; 83690; 83735; 83880; 83935; 84132; 84300; 84484; 85025; 85610; 85730; 87040; 87205; 87449; 93005; 93306; 94664; J0456; J0696; J1940; J2060; J2270; J7050